=== PATIENT | female | born 1935 | race Caucasian/White ===

== ENCOUNTER 2019-07-06 22:42 | Emergency (ER) | payer OTHER, MEDICAID ==
[~2019-07-06] VITALS: Ht 157.5 cm; Wt 51.7 kg
[2019-07-06] MEDS ORDERED: OMNIPAQUE 350 MG/ML, 100ML BOTTLE ONE (23:00)
[2019-07-06] MEDS ORDERED: SODIUM CHLORIDE 0.9% 1,000ML IVBOLUS ONE (23:00)
[2019-07-06 23:06] LABS: MICROSCOPIC NOT IND
[2019-07-06 23:12] LABS: CULTURE INDICATED? NO
[2019-07-06 23:16] LABS: BASOPHILS # (AUTO) 0.02 x10^3/uL (0-0.1); BASOPHILS % (AUTO) 0 % (0-1); EOSINOPHILS # (AUTO) 0.11 x10^3/uL (0-0.4); EOSINOPHILS % (AUTO) 2 % (1-7); LYMPHOCYTES # (AUTO) 1.78 x10^3/uL (1-3.4); LYMPHOCYTES % (AUTO) 25 % (22-44); MD NO; MEAN CORPUSCULAR HEMOGLOBIN 28.8 pg (27.0-34.8); MEAN CORPUSCULAR HGB CONC 32.6 g/dL (32.4-35.8); MEAN CORPUSCULAR VOLUME 88.5 fL (80-100); MEAN PLATELET VOLUME 9.4 fL (7.4-10.4); MONOCYTES # (AUTO) 0.76 x10^3/uL (0.2-0.8); MONOCYTES % (AUTO) 11 % (2-9); NEUTROPHILS # (AUTO) 4.51 x10^3/uL (1.8-6.8); NEUTROPHILS % (AUTO) 63 % (42-75); PLATELET COUNT 178 x10^3/uL (130-400); RED BLOOD COUNT 4.44 x10^6/uL (3.82-5.3); RED CELL DISTRIBUTION WIDTH 15.7 % (9.6-15.2)
[2019-07-06 23:26] LABS: ALANINE AMINOTRANSFERASE 18 U/L (12-78); ALBUMIN 2.9 g/dL (3.4-5.0); ANION GAP 7 mmol/L (5-15); CALCIUM 7.9 mg/dL (8.5-10.1); CHLORIDE 114 mmol/L (98-107)
[2019-07-06 23:31] LABS: ALKALINE PHOSPHATASE 68 U/L (45-117); BILIRUBIN,TOTAL 0.2 mg/dL (0.2-1.0); TOTAL PROTEIN 6.3 g/dL (6.4-8.2); TROPONIN I < 0.015 ng/mL (0.000-0.045)
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
[2019-07-07] MEDS ORDERED: MIDAZOLAM 1 MG/ML, 2ML ONE (00:40)
[2019-07-07] MEDS ORDERED: HALOPERIDOL 5 MG/ML ONE (00:40)
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
[2019-07-07] MEDS ORDERED: HALOPERIDOL 5 MG/ML IM ONE (01:00)
[2019-07-07] MEDS ORDERED: MIDAZOLAM 1 MG/ML, 2ML IM ONE (01:00)
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
--- NOTE | 2019-07-07 03:13 | NUR ---
GLEN WITH [facility] STATES THEY WILL TAKE PT BACK NOW THAT SHE IS CALM AND VS IMPROVED.
[2019-07-07 03:29] VITALS: BP 118/56
== END 2019-07-07 03:31 | disposition home or self-care (01) ==
LOC: ED 23:40
DX: F03.90 Unspecified dementia, unspecified severity, without behavioral disturbance, psychotic disturbance, mood disturbance, and anxiety (principal); R00.0 Tachycardia, unspecified; R45.1 Restlessness and agitation; Z87.891 Personal history of nicotine dependence; J44.9 Chronic obstructive pulmonary disease, unspecified; E78.5 Hyperlipidemia, unspecified; I10 Essential (primary) hypertension; E03.9 Hypothyroidism, unspecified
CPT/HCPCS: 36415; 70450; 71045; 74177; 80053; 81003; 83605; 83690; 84484; 85025; 93005; 96372; 99284; J1630; J2250; Q9967